=== PATIENT | female | born 2000 | race Caucasian/White ===

== ENCOUNTER 2019-04-26 13:12 | Emergency (ER) | payer MEDICAID ==
[~2019-04-26] VITALS: Ht 154.9 cm; Wt 54.2 kg
[2019-04-26 13:26] VITALS: BP 113/75
[2019-04-26] MEDS ORDERED: HYDROcodone/APAP 5/325 TABLET PO ONE (14:30)
[2019-04-26] MEDS ORDERED: HYDROcodone/APAP 5/325 TABLET ONE (14:53)
[2019-04-26] MEDS ORDERED: NEOSPORIN OINT. PKT 1 PACKET ONE (14:58)
--- NOTE | 2019-04-26 15:04 | NUR ---
bacitracin applied and finger bandaged per provider
== END 2019-04-26 15:11 | disposition home or self-care (01) ==
LOC: ED 14:59
DX: L03.011 Cellulitis of right finger (principal)
CPT/HCPCS: 99283

== ENCOUNTER 2019-05-23 18:50 | Emergency (ER) | payer MEDICAID ==
[~2019-05-23] VITALS: Ht 154.9 cm; Wt 53.9 kg
[2019-05-23] MEDS ORDERED: AZITHROMYCIN 500 MG TABLET PO ONE (19:30)
[2019-05-23] MEDS ORDERED: CEFTRIAXONE 250 MG IM ONE (19:30)
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
--- NOTE | 2019-05-23 19:51 | NUR ---
PT FINGER BEING CLEANED BY SHAKE BACKBOARD NOTCHER AT THIS TIME PER ERP ORDERS.
[2019-05-23 19:53] VITALS: BP 108/71
[2019-05-23] MEDS ORDERED: CEFTRIAXONE 250 MG ONE (20:02)
[2019-05-23] MEDS ORDERED: AZITHROMYCIN 500 MG TABLET ONE (20:03)
[2019-05-23 20:17] LABS: WET PREP WBCS FEW (FEW)
[2019-05-23 20:18] LABS: CLUE CELLS PRESENT (NONE SEEN)
[2019-05-23 20:56] LABS: HCG UR SG 1.026 (1.003-1.030)
[2019-05-23 21:08] LABS: MICROSCOPIC INDICATED
[2019-05-23 21:24] LABS: CULTURE INDICATED? YES
== END 2019-05-23 22:24 | disposition home or self-care (01) ==
LOC: ED 21:04
DX: S61.210A Laceration without foreign body of right index finger without damage to nail, initial encounter (principal); N76.0 Acute vaginitis; X58.XXXA Exposure to other specified factors, initial encounter; Y93.89 Activity, other specified; Y92.89 Other specified places as the place of occurrence of the external cause; Y99.8 Other external cause status
CPT/HCPCS: 81001; 81025; 87086; 87210; 87491; 87591; 87808; 96372; 99283; J0696